=== PATIENT | female | born 1990 | race Caucasian/White ===

== ENCOUNTER 2020-07-26 10:35 | Emergency (ER) | payer OTHER, SELFPAY ==
[2020-07-26 10:51] VITALS: BP 152/92; PULSE 98; RESP 14; TEMP 36.9; O2SAT 98
--- NOTE | 2020-07-26 10:55 | ED.URI ---
HPI - URI/Sore Throat General Chief Complaint: Upper Respiratory Infection Stated Complaint: Sore/Swollen Throat Time Seen by Provider: 07/26/20 10:55 Source: patient and RN notes reviewed Mode of arrival: ambulatory Limitations: no limitations History of Present Illness HPI Narrative: 29-year-old female presents to the emergency room with complaints of a sore throat since yesterday. Patient denies symptoms of nausea and vomiting. No chest pain, no abdominal pain. No shortness of breath. Denies fevers. States that she has one episode of diarrhea last night, had a normal bowel movement since.Recently started a [employer] 9-week program for weight loss. States that she started this program on Thursday, 3 days ago. Related Data Home Medications Medication Instructions Recorded Confirmed norethindrone ac-eth estradiol 1 tablet PO DAILY 07/26/20 07/26/20 Allergies Allergy/AdvReac Type Severity Reaction Status Date / Time No Known Allergies Allergy Verified 07/26/20 11:01 Review of Systems Review of Systems: Narrative: CONSTITUTIONAL: Denies fever, chills, or sweats. EYES: Denies visual changes, redness, or discharge. ENT: Denies rhinorrhea, congestion or otalgia. Endorses a sore throat CARDIOVASCULAR: Denies chest pain, palpitations, or edema. RESPIRATORY: Denies cough or dyspnea. GASTROINTESTINAL: Denies abdominal pain, nausea, vomiting. GENITOURINARY: Denies dysuria or hematuria. SKIN: Denies rash or itching. MUSCULOSKELETAL: Denies back pain, joint pain, or myalgia. NEUROLOGIC: Denies headache, numbness, or weakness. PSYCHIATRIC: Denies anxiety or depression. All other systems reviewed are negative, except as documented in HPI. PMFSH Comments At the time of my signature, I reviewed and agree with the nursing past medical, surgical, social, and family history. There is no relevant family history pertinent to the patient complaint. Exam Narrative: Exam Narrative: GENERAL: This is a well-nourished, well-developed patient, in no apparent distress. Patient is not ill in appearance HEAD: normocephalic, atraumatic. EYES: PERRL. Sclera clear/white. Vision is grossly intact. EARS: External ears normal, auditory canals clear and without drainage, TMs normal without perforation. Hearing grossly intact. NOSE: External nose normal with no obvious nasal discharge, nares without redness, no rhinorrhea. THROAT: Mucous membranes moist, posterior pharynx clear. Tonsils +2 bilaterally with uvula midline. Throat is pink without increased redness or exudate NECK: Neck supple without masses or thyromegaly. Bilateral mild lymphadenopathy Cervical chain. CARDIOVASCULAR: Regular rate and rhythm without murmurs, gallops, or rubs. RESPIRATORY: Clear to auscultation. Breath sounds equal bilaterally. No wheezes, rales, or rhonchi. GASTROINTESTINAL: Abdomen soft, non-tender, nondistended. Bowel sounds are active. No hepato-splenomegaly, or palpable masses. No guarding. SKIN: warm, intact with no suspicious lesions or rash, good texture and turgor. NEURO: awake, alert, and oriented to person, place and time. There were no obvious focal neurologic abnormalities. EXTREMITIES: No clubbing, cyanosis, or edema. No joint tenderness, effusion, or edema noted. BACK: Nontender without deformity or crepitance. No flank tenderness. Course Vital Signs Vital signs: Vital Signs Temperature 98.4 F 07/26/20 10:51 Pulse Rate 98 07/26/20 10:51 Respiratory Rate 14 07/26/20 10:51 Blood Pressure 152/92 H 07/26/20 10:51 Pulse Oximetry 98 07/26/20 10:51 Temperature 98.4 F 07/26/20 10:51 Pulse Rate 98 07/26/20 10:51 Respiratory Rate 14 07/26/20 10:51 Blood Pressure 152/92 H 07/26/20 10:51 Pulse Oximetry 98 07/26/20 10:51 Reviewed. Blood pressure elevated discussed with patient the importance of following up. Discussed signs and symptoms to return. MDM - URI/Sore Throat Differential Diagnosis Differential diagnosis: Likely
== END 2020-07-26 11:28 | disposition home or self-care (01) ==
PROVIDERS: Emergency Provider Nurse Practitioner
DX: J02.9 Acute pharyngitis, unspecified (principal)
CPT/HCPCS: 87081; 87880; 99213; G0463